=== PATIENT | female | born 1960 | race Two or more races ===

== ENCOUNTER 2017-02-26 11:29 | Emergency (ER) | payer OTHER ==
[~2017-02-26] VITALS: Ht 152.4 cm; Wt 70.0 kg
[2017-02-26 11:41] VITALS: BP 141/67
== END 2017-02-26 12:10 | disposition home or self-care (01) ==
LOC: ER 11:34
DX: M25.512 Pain in left shoulder (principal); I10 Essential (primary) hypertension; E11.9 Type 2 diabetes mellitus without complications; M25.511 Pain in right shoulder; Z88.0 Allergy status to penicillin; V49.88XA Car occupant (driver) (passenger) injured in other specified transport accidents, initial encounter; Y93.89 Activity, other specified; Y92.89 Other specified places as the place of occurrence of the external cause; Y99.8 Other external cause status
CPT/HCPCS: 99283